=== PATIENT | female | born 1990 | race Two or more races ===

== ENCOUNTER 2023-04-13 06:41 | Emergency (ER) | payer OTHER ==
[~2023-04-13] VITALS: Ht 160 cm; Wt 63.0 kg
== END 2023-04-13 10:57 | disposition home or self-care (01) ==
LOC: ER 06:41
DX: R10.2 Pelvic and perineal pain (principal); Z88.8 Allergy status to other drugs, medicaments and biological substances

== ENCOUNTER 2023-04-28 17:34 | Emergency (ER) | payer OTHER ==
[~2023-04-28] VITALS: Ht 157.5 cm; Wt 63.5 kg
== END 2023-04-28 21:53 | disposition home or self-care (01) ==
LOC: ER 17:34
PROVIDERS: Nurse Practitioner Family
DX: N83.292 Other ovarian cyst, left side (principal); N93.9 Abnormal uterine and vaginal bleeding, unspecified; R10.2 Pelvic and perineal pain

== ENCOUNTER → 2024-06-01 | Emergency (ER) | payer OTHER ==
[~2024-06-01] VITALS: Ht 157.5 cm; Wt 62.1 kg
[2024-06-01 21:00] LABS: HEMATOCRIT 39.8 % (36.0-45.00); HEMOGLOBIN 13.9 g/dL (12.0-15.00); MEAN CORPUSCULAR HEMOGLOBIN 30.8 pg (27.00-32.0); PLATELET COUNT 204 K/uL (150-450); RED BLOOD COUNT 4.52 M/uL (4.00-6.00); RED CELL DISTRIBUTION WIDTH 13.2 % (11.5-14.5)
== END | disposition home or self-care (01) ==
LOC: ER 19:02
DX: B34.9 Viral infection, unspecified (principal); Z88.8 Allergy status to other drugs, medicaments and biological substances; Z20.822 Contact with and (suspected) exposure to COVID-19

== ENCOUNTER 2024-06-04 10:24 | Outpatient (CLI) | payer OTHER ==
[2024-06-04 11:39] LABS: HEMATOCRIT 39.7 % (36.0-45.00); HEMOGLOBIN 13.6 g/dL (12.0-15.00); MEAN CELL VOLUME 89.1 fL (80.00-100.00); MEAN CORPUSCULAR HEMOGLOBIN 30.5 pg (27.00-32.0); MEAN CORPUSCULAR HGB CONC 34.2 g/dl (32.0-36.0); RED BLOOD COUNT 4.46 M/uL (4.00-6.00); RED CELL DISTRIBUTION WIDTH 12.7 % (11.5-14.5)
[2024-06-04 12:00] LABS: PLATELET COUNT 120 K/uL (150-450)
== END 2024-06-04 10:25 | disposition home or self-care (01) ==
LOC: LAB 10:24
DX: Z00.00 Encounter for general adult medical examination without abnormal findings (principal)

== ENCOUNTER 2024-06-04 12:01 | Emergency (ER) | payer OTHER ==
[~2024-06-04] VITALS: Ht 157.5 cm; Wt 62.1 kg
[2024-06-04] MEDS ORDERED: 0.9 % SODIUM CHLORIDE 1,000 ML IV STA (13:08)
[2024-06-04 14:30] LABS: HEMOGLOBIN 12.9 g/dL (12.0-15.00); MEAN CELL VOLUME 87.1 fL (80.00-100.00); MEAN CORPUSCULAR HEMOGLOBIN 30.3 pg (27.00-32.0); MEAN CORPUSCULAR HGB CONC 34.8 g/dl (32.0-36.0); RED BLOOD COUNT 4.25 M/uL (4.00-6.00); RED CELL DISTRIBUTION WIDTH 12.9 % (11.5-14.5)
[2024-06-04 14:37] LABS: CALCIUM 8.7 mg/dL (8.5-10.1); CREATININE SERUM 0.63 mg/dL (0.55-1.02); GFR 110.22
[2024-06-04 14:50] LABS: POTASSIUM 2.91 mEq/L (3.5-5.1)
[2024-06-04] MEDS ORDERED: POTASSIUM CHLORIDE/D5-0.9%NACL 1,000 ML IV NR (15:00)
[2024-06-04 15:07] LABS: PLATELET COUNT 105 K/uL (150-450)
[2024-06-04 16:45] LABS: PH,URINE 6.5 (5.0-8.0); URINE APPEARANCE Cloudy; URINE BILIRRUBIN Small (NEGATIVE); URINE BLOOD Small; URINE COLOR Dark Yellow; URINE GLUCOSE Negative (NEGATIVE); URINE KETONE Trace (NEGATIVE); URINE LEUKOCYTE Trace; URINE NITRATE Negative
[2024-06-04] MEDS ORDERED: POTASSIUM CHLORIDE 10 MEQ CAPSULE PO ONE (16:45)
[2024-06-04 16:48] LABS: URINE BACTERIA 4738.8 uL (0.0-1933); URINE EPITHELIAL CELLS 39.5 uL (0.0-38.8); URINE RBC 118.7 uL (0.0-20.8); URINE WBC 25.8 uL (0.0-23.2)
[2024-06-04 17:11] LABS: URINE CAST 1.22 uL (0.0-1.40); URINE CRYSTALS MODERATE /HPF; URINE PROTEIN 100 (NEGATIVE)
[2024-06-04 17:13] LABS: URINE MUCUS HEAVY
[2024-06-04 18:00] LABS: HEMATOCRIT 35.7 % (36.0-45.00); HEMOGLOBIN 12.4 g/dL (12.0-15.00); MEAN CELL VOLUME 87.8 fL (80.00-100.00); MEAN CORPUSCULAR HEMOGLOBIN 30.5 pg (27.00-32.0); MEAN CORPUSCULAR HGB CONC 34.8 g/dl (32.0-36.0); RED BLOOD COUNT 4.07 M/uL (4.00-6.00); RED CELL DISTRIBUTION WIDTH 12.9 % (11.5-14.5)
[2024-06-04 18:04] LABS: PLATELET COUNT 92 K/uL (150-450)
[2024-06-04 18:16] LABS: CALCIUM 7.6 mg/dL (8.5-10.1); CREATININE SERUM 0.58 mg/dL (0.55-1.02); GFR 121.25; POTASSIUM 3.37 mEq/L (3.5-5.1)
== END 2024-06-04 19:01 | disposition home or self-care (01) ==
LOC: ER 12:03
PROVIDERS: Emergency Medicine; General Practice
DX: B34.9 Viral infection, unspecified (principal); Z88.8 Allergy status to other drugs, medicaments and biological substances